=== PATIENT | female | born 1970 | race Caucasian/White ===

== ENCOUNTER 2019-05-09 02:37 | Inpatient (IN) | payer OTHER ==
[~2019-05-09] VITALS: Ht 175.3 cm; Wt 129.0 kg
--- NOTE | 2019-05-09 03:25 | NUR ---
JAYESH sparks notes Received report regarding Pt from JAYESH Melton [facility] ER nurse.
--- NOTE | 2019-05-09 04:30 | NUR ---
JAYESH sparks admission notes Received Pt from [facility] direct admission. Pt arrived with two personnel ambulance via a gurney at 0414 am. Pt is in stable condition. Pt is alert and oriented X4 and able to verbalize needs. Respiration is normal. No SOB. No nausea or vomiting. No S/S of distress noted. IV sites at RAC #18 is intact, patent, clean and SL. Skin assessment checked and pictures taken and placed in Pt's chart. Pt's belongings checked by LATANYA Kennedy. Instructed to use call light for assistance. Bed at low position, brakes on, side rails upX2 and call light is within reach. Will continue to monitor.
--- NOTE | 2019-05-09 04:40 | NUR ---
RN medsurg notes Contacted and informed Dr. Abreu for new admission orders.
[2019-05-09 04:51] VITALS: BP 159/101
[2019-05-09] MEDS ORDERED: ZOLPIDEM TARTRATE 5 MG TABLET PO PRN (06:00)
[2019-05-09] MEDS ORDERED: ONDANSETRON HCL/PF 4 MG/2 ML VIAL IVP PRN (06:00)
[2019-05-09] MEDS ORDERED: hydrALAZINE HCL 25 MG TABLET PO PRN (06:00)
[2019-05-09] MEDS ORDERED: ACETAMINOPHEN 325 MG TABLET PO PRN (06:00)
[2019-05-09] MEDS ORDERED: HYDROCODONE/APAP 5/325MG 1 EACH TABLET PO PRN (06:00)
--- NOTE | 2019-05-09 07:03 | NUR ---
RN medsurg notes Administered Dilaudid 0.5 mg as ordered for pain in bilateral lower extremities 9/10 on pain scale per Pt requested. Will continue to monitor.
[2019-05-09] MEDS: HYDROMORPHONE INJ 2 MG/ML DISP.SYRIN IV PRN ×2 (07:05→18:10)
[2019-05-09 07:23] VITALS: BP 159/89
--- NOTE | 2019-05-09 07:30 | NUR ---
RN medsurg closing notes Pt is resting in bed comfortably. Awaken easily. No SOB. No S/S of distress noted. IV sites at RAC is intact, patent and SL. VS is stable. Afebrile. All needs met. Safety precautions is maintained. Bed at low position and call light is within reach. Instructed to call for assistance. Will endorse to morning nurse for GISELLE
[2019-05-09 08:00] VITALS: BP_SYST 118; BP_SYST 124; BP_DIAS 62; BP_DIAS 77
--- NOTE | 2019-05-09 08:00 | NUR ---
RN NOTES RECEIVED PATIENT IN THE ROOM RESTING IN THE BED, HAS NO ACUTE RESPIRATORY DISTRESS. PATIENT A/O X4, WAS COMPLAINING OF HEADACHE. V/S TAKEN STABLE, PATIENT HAS A EDEMA BILATERAL LOWER EXTREMITIES AND SCABS.ALSO PATIENT HAS A EDEMA UPPER EXTREMITIES, SEEN BY HOSPITALIST. IV ACCESS ON RIGHT AC AREA INTACT. CALL LIGHT WITHIN TO REACH. PATIENT AMBULATORY SELF CARE. SAFETY PRECAUTION MAINTAINED ALL THE TIME.
[2019-05-09] MEDS ORDERED: FEE PK DOSING 1 MIN EA MC ONE (08:25)
[2019-05-09 08:31] LABS: EOSINOPHILS % (AUTO) 7.7 % (0.0-6.0); HEMATOCRIT 37 % (33-45); HEMOGLOBIN 12.6 g/dL (11.5-14.8); LYMPHOCYTES # (AUTO) 0.9 /CMM (0.8-4.8); LYMPHOCYTES % (AUTO) 20.4 % (20.0-44.0); MEAN CORPUSCULAR HGB CONC 34 g/dl (31.0-36.0); MEAN CORPUSCULAR VOLUME 84 fL (82-100); MONOCYTES # (AUTO) 0.5 /CMM (0.1-1.30); MONOCYTES % (AUTO) 10.5 % (2.0-12.0); NEUTROPHILS # (AUTO) 2.7 /CMM (1.8-8.9); NEUTROPHILS % (AUTO) 60.4 % (43.0-81.0); PLATELET COUNT (AUTO) 215 /CMM (150-450); RED BLOOD CELL COUNT(AUTO) 4.42 MIL/uL (4.0-5.2); WHITE BLOOD COUNT (AUTO) 4.5 K/uL (4.3-11.0)
--- NOTE | 2019-05-09 08:41 | NUR ---
WOUND CARE CONSULT: PT PRESENTS WITH MULTIPLE ITCHING SCABS AND SOME PUSTULES ON LOWER LEGS WELL SOME DRY SCABS AND SCRATCH NEWELL ON UPPER ARMS, PRESENT ON ADMISSION. PT STATES LOWER LEGS ARE VERY ITCHY AND SOMETIMES THERE IS WEEPING FROM LOWER LEGS. RECOMMEND DPM CONSULT. DEFER TO MD FOR UPPER ARM SCABS. PT REFUSED FULL ASSESSMENT OF GROIN/BUTTOCKS AREA BUT BACK IS CLEAR. PT IS CONTINENT AND AMBULATORY WITH CURRENT MELA SCORE OF 19. WILL SEE PRN. MD IN AGREEMENT WITH PLAN OF CARE. Addendum: 05/09/19 at 0844 by [address] HAWLEY [address] ANG AWARE OF DPM CONSULT REQUEST.
[2019-05-09 08:42] LABS: CALCIUM, SERUM 8.1 mg/dL (8.5-10.1); CREATININE 0.8 mg/dL (0.6-1.3); POTASSIUM 3.6 mmol/L (3.5-5.1)
[2019-05-09 08:48] LABS: ALBUMIN 2.6 g/dL (3.4-5.0); BILIRUBIN,TOTAL 0.6 mg/dL (0.2-1.0); MAGNESIUM 1.9 mg/dL (1.8-2.4); PHOSPHORUS 4.2 mg/dL (2.5-4.9); TOTAL PROTEIN, SERUM 6.1 g/dL (6.4-8.2)
--- NOTE | 2019-05-09 09:00 | NUR ---
RN NOTES PATIENT STABLE ADMINISTERED SCHEDULED MEDICATION. STARTED NEW IV ACCESS ON LEFT HAND. SEEN BY WOUND NURSE , CONTINUED MONITORING.
[2019-05-09 10:00] LABS: THYROID STIMULATING HORMONE 3.716 uIU/mL (0.358-3.74)
[2019-05-09] MEDS ORDERED: VANCOMYCIN 1.25 GM in IV D5W 500 ML IV SCH (10:00)
[2019-05-09] MEDS: DOCUSATE SODIUM 100 MG CAPSULE PO SCH ×2 (10:16→18:02)
[2019-05-09] MEDS: PANTOPRAZOLE 40 MG TABLET.DR PO SCH (10:27)
[2019-05-09] MEDS: ENOXAPARIN SODIUM 40 MG/0.4 ML DISP.SYRIN SQ SCH (10:34)
--- NOTE | 2019-05-09 10:36 | NUR ---
rn notes administered Tylenol 650 mg po prn for headache.
[2019-05-09] MEDS ORDERED: PIPERACILLIN /TAZOBACTAM 3.375 G in IV D5W 50 ML IV SCH (11:00)
[2019-05-09] MEDS ORDERED: DIPHENHYDRAMINE HCL 12.5 MG/5 ML UDC PO PRN (11:30)
[2019-05-09 16:00] VITALS: BP 147/90
--- NOTE | 2019-05-09 17:00 | NUR ---
RN NOTES PATIENT SEEN BY WOUND MD ORDERS TAKEN AND CARRIED OUT.
[2019-05-09] MEDS ORDERED: PIPERACILLIN /TAZOBACTAM 3.375 G in IV D5W 100 ML IV SCH (18:00)
[2019-05-09] MEDS: diphenhydrAMINE HCL ELIX 25 MG/10 ML UDC PO PRN (18:08)
--- NOTE | 2019-05-09 18:20 | NUR ---
rn notes administered Dilaudid 0.5 mg/ml iv push for lower bilateral legs pain, and Benadryl 25 ml po prn for itching. also infusin Zosyn 25ml/hr on right ac area. patient getting arterial echo at this time. call light within to reach, continued monitoring.
--- NOTE | 2019-05-09 18:45 | NUR ---
RN NOTES PATIENT STABLE MEDICATION WERE ADMINISTERED FOR PAIN EFFECTIVE. CALL LIGHT WITHIN TO REACH. ENDORSED ONCOMING NURSE FOLLOW PLAN OF CARE.
--- NOTE | 2019-05-09 19:30 | NUR ---
RN NOTES RECEIVED PT. AWAKE ON BED, A/OX4, AMBULATORY, BILATERAL LEGS CELLULITIS, DENIES PAIN AT THIS TIME, NO SOB, CALL LIGHT WITHIN REACH, [id number], CONTINUE TO MONITOR
[2019-05-09 20:00] VITALS: BP 149/76
[2019-05-09] MEDS: DOXYCYCLINE HYCLATE (100 MG) 100 MG TABLET PO SCH (20:29)
--- NOTE | 2019-05-09 21:30 | NUR ---
RN NOTES PT. IV LINE WAS LEAKING, TRIED TO PUT A LINE BUT PT. IS A HARD STICK, GOT AN ORDER OF MIDLINE INSERTION.. SPOKE TO NURSING FIELD SPEC AND INFORMED LIDA FOR MIDLINE INSERTION
--- NOTE | 2019-05-09 22:00 | NUR ---
JAYESH HILTON PUT A MIDLINE ON THE RIGHT UPPER ARM GAUGE #18
--- NOTE | 2019-05-09 22:26 | NUR ---
RN NOTES CALLED DR. BAIN AND INFORMED HIM THAT PT. IS COMPLAINING OF GAS PAIN- GOT QN ORDER OF MAALOX 30ML PO Q 6 HRS. PRN, ORDER NOTED AND CARRIED OUT
[2019-05-09] MEDS ORDERED: MAG HYDROX/AL HYDROX/SIMETH 30 ML UDC PO PRN (22:30)
[2019-05-10] MEDS: HYDROMORPHONE INJ 2 MG/ML DISP.SYRIN IV PRN ×4 (05:25→20:42)
--- NOTE | 2019-05-10 05:30 | NUR ---
RN NOTES COMPLAINED OF BILATERAL LOWER EXTREMITIES- DILAUDID 0.5MG IV GIVEN ORDERED, V/S STABLE
--- NOTE | 2019-05-10 06:31 | NUR ---
RN NOTES AWAKE, MORNING CARE RENDERED, NO SOB, DENIES PAIN AT THIS TIME, CALL LIGHT WITHIN REACH, [id number], PT. NEEDS ATTENDED
--- NOTE | 2019-05-10 07:15 | NUR ---
MS/RN OPENING NOTE THE PATIENT IS RECEIVED IN BED. PATIENT IS ALERT AND ORIENTED X4. IN ROOM AIR AND DENIES SOB. RESPIRATION REGULAR AND UNLABORED. DENIES PAIN. BILATERAL LOWER LEGS WRAPPED WITH BOBBY SRAP. NO S/S POOR CIRCULATION NOTED. LINA G 18 MIDLINE PATENT AND SALINE LOCKED. LEFT HAND G 22 PATENT AND SALINE LOCKED. BED LOW AND LOCKED. SIDE RAILS UP X3. CALL LIGHT WITHIN REACH. WILL CONTINUE TO MONITOR.
[2019-05-10] MEDS: diphenhydrAMINE HCL ELIX 25 MG/10 ML UDC PO PRN ×3 (07:38→22:47)
[2019-05-10] MEDS: PANTOPRAZOLE 40 MG TABLET.DR PO SCH (07:38)
[2019-05-10 08:00] VITALS: BP_SYST 106; BP_SYST 121; BP_DIAS 65; BP_DIAS 77
[2019-05-10 08:20] LABS: CALCIUM, SERUM 8.4 mg/dL (8.5-10.1); CREATININE 0.7 mg/dL (0.6-1.3); PHOSPHORUS 4.3 mg/dL (2.5-4.9); POTASSIUM 3.8 mmol/L (3.5-5.1)
[2019-05-10 08:22] LABS: BASOPHILS # (AUTO) 0.1 /CMM (0.0-0.2); EOSINOPHILS % (AUTO) 8.4 % (0.0-6.0); HEMATOCRIT 38 % (33-45); HEMOGLOBIN 12.8 g/dL (11.5-14.8); LYMPHOCYTES # (AUTO) 0.8 /CMM (0.8-4.8); LYMPHOCYTES % (AUTO) 15.7 % (20.0-44.0); MEAN CORPUSCULAR HGB CONC 34 g/dl (31.0-36.0); MEAN CORPUSCULAR VOLUME 84 fL (82-100); MONOCYTES # (AUTO) 0.4 /CMM (0.1-1.30); MONOCYTES % (AUTO) 8.4 % (2.0-12.0); NEUTROPHILS # (AUTO) 3.5 /CMM (1.8-8.9); NEUTROPHILS % (AUTO) 66.5 % (43.0-81.0); PLATELET COUNT (AUTO) 225 /CMM (150-450); RED BLOOD CELL COUNT(AUTO) 4.52 MIL/uL (4.0-5.2); WHITE BLOOD COUNT (AUTO) 5.3 K/uL (4.3-11.0)
[2019-05-10] MEDS: TRIAMCINOLONE ACETONIDE 0.1% CR 15 GM TUBE TP SCH (09:00)
[2019-05-10] MEDS: DOCUSATE SODIUM 100 MG CAPSULE PO SCH ×2 (10:09→17:20)
[2019-05-10] MEDS: DOXYCYCLINE HYCLATE (100 MG) 100 MG TABLET PO SCH ×2 (10:09→20:36)
[2019-05-10] MEDS: ENOXAPARIN SODIUM 40 MG/0.4 ML DISP.SYRIN SQ SCH (10:14)
[2019-05-10 16:00] VITALS: BP 147/87
--- NOTE | 2019-05-10 18:30 | NUR ---
MS/RN NOTE THE PATIENT ALERT AND ORIENTED X4. DENIES PAIN AT THIS TIME. RESPIRATION REGULAR AND UNLABORED. IN ROOM AIR AND SATURATION IS AT 98%. DENIES SOB. THE PATIENT IN NO APPARENT DISTRESS. BILATERAL LOWER LEGS DRESSING AND BOBBY WRAP INTACT. NO S/S POOR CIRCULATION NOTED. LINA MIDLINE PATENT AND SALINE LOCKED. BED LOW AND LOCKED. SIDE RAILS UP X3. CALL LIGHT WITHIN REACH. WILL ENDORSE TO BOTTOM TURNER.
[2019-05-10 20:00] VITALS: BP 142/99
--- NOTE | 2019-05-10 20:48 | NUR ---
RN NOTES COMPLAINED OF BILATERAL LOWER EXTREMITIES- DILAUDID 0.5MG IV GIVEN ORDERED, V/S STABLE
--- NOTE | 2019-05-10 22:50 | NUR ---
RN NOTES COMPLAINED OF ITCHINESS AND ASK FOR BENADRYL - BENADRYL 25MG PO GIVEN ORDERED
[2019-05-11 06:20] LABS: BASOPHILS # (AUTO) 0.1 /CMM (0.0-0.2); EOSINOPHILS % (AUTO) 7.5 % (0.0-6.0); HEMATOCRIT 39 % (33-45); HEMOGLOBIN 12.9 g/dL (11.5-14.8); LYMPHOCYTES # (AUTO) 0.9 /CMM (0.8-4.8); LYMPHOCYTES % (AUTO) 16.2 % (20.0-44.0); MEAN CORPUSCULAR HGB CONC 33 g/dl (31.0-36.0); MEAN CORPUSCULAR VOLUME 84 fL (82-100); MONOCYTES # (AUTO) 0.4 /CMM (0.1-1.30); MONOCYTES % (AUTO) 7.8 % (2.0-12.0); NEUTROPHILS # (AUTO) 3.6 /CMM (1.8-8.9); NEUTROPHILS % (AUTO) 67.5 % (43.0-81.0); PLATELET COUNT (AUTO) 238 /CMM (150-450); RED BLOOD CELL COUNT(AUTO) 4.63 MIL/uL (4.0-5.2); WHITE BLOOD COUNT (AUTO) 5.4 K/uL (4.3-11.0)
[2019-05-11 06:38] LABS: CALCIUM, SERUM 8.4 mg/dL (8.5-10.1); CREATININE 0.7 mg/dL (0.6-1.3); MAGNESIUM 1.9 mg/dL (1.8-2.4); PHOSPHORUS 3.3 mg/dL (2.5-4.9); POTASSIUM 3.7 mmol/L (3.5-5.1)
[2019-05-11] MEDS: HYDROMORPHONE INJ 2 MG/ML DISP.SYRIN IV PRN ×2 (06:58→10:31)
--- NOTE | 2019-05-11 07:00 | NUR ---
RN NOTES COMPLAINED OF BILATERAL LOWER EXTREMITIES-DILAUDID 0.5MG IV GIVEN ORDERED, VS STABLE, MORNING CARE RENDERED, CALL LIGHT WITHIN REACH, [id number], PT. NEEDS ATTENDED
--- NOTE | 2019-05-11 07:47 | NUR ---
RN MS OPENING NOTES Patient received on room air, no sob noted. Patient denies pain at this time. Patient remains a/o x4. Patient seen sitting comfortably. LINA midline #18 remains patent. Bed at the lowest setting, call light within reach.
[2019-05-11 08:00] VITALS: BP 127/82
[2019-05-11] MEDS: TRIAMCINOLONE ACETONIDE 0.1% CR 15 GM TUBE TP SCH (08:04)
[2019-05-11] MEDS: DOCUSATE SODIUM 100 MG CAPSULE PO SCH (08:05)
[2019-05-11] MEDS: PANTOPRAZOLE 40 MG TABLET.DR PO SCH (08:05)
[2019-05-11] MEDS: DOXYCYCLINE HYCLATE (100 MG) 100 MG TABLET PO SCH (08:05)
[2019-05-11] MEDS: ENOXAPARIN SODIUM 40 MG/0.4 ML DISP.SYRIN SQ SCH (10:22)
[2019-05-11] MEDS ORDERED: DOXY100T2 PO (11:41)
--- NOTE | 2019-05-11 16:20 | NUR ---
RN MS NOTES Patient discharged at this time, no sob noted, vital signs stable. Patient has all discharge paper, signed. Patient had no further questions about the discharge paperwork. Patient has all belongings and patient only wanted her right leg to be taken a photo of, refused everything else.
== END 2019-05-11 16:45 | disposition home or self-care (01) | DRG 603 ==
LOC: MED 04:12
PROVIDERS: ADMIT Registered Nurse; ATTEND Registered Nurse
PROC: 05HB33Z Insertion of Infusion Device into Right Basilic Vein, Percutaneous Approach (ICD-10-PCS; principal; 2019-05-10)
DX: L03.115 Cellulitis of right lower limb (principal); Z68.41 Body mass index [BMI] 40.0-44.9, adult; L03.114 Cellulitis of left upper limb; L03.113 Cellulitis of right upper limb; N39.0 Urinary tract infection, site not specified; L03.116 Cellulitis of left lower limb; F41.9 Anxiety disorder, unspecified; F32.9 Major depressive disorder, single episode, unspecified; E66.01 Morbid (severe) obesity due to excess calories; I87.2 Venous insufficiency (chronic) (peripheral); I89.0 Lymphedema, not elsewhere classified; I10 Essential (primary) hypertension; B96.89 Other specified bacterial agents as the cause of diseases classified elsewhere; Z80.3 Family history of malignant neoplasm of breast; Z83.3 Family history of diabetes mellitus; Z90.710 Acquired absence of both cervix and uterus; Z98.890 Other specified postprocedural states
CPT/HCPCS: 36415; 80048-TC; 80053-TC; 80061-TC; 83735-TC; 84100-TC; 84443-TC; 84702-TC; 85025-TC; 87081-TC; 93970-TC; 97116-TC; 97530-TC; G0378; J1170; J1650; J2543; J3370; J7060; Q0163